=== PATIENT | male | born 1985 | race Hispanic/Latino ===

== ENCOUNTER 2024-01-11 23:29 | Emergency (ER) | payer SELFPAY ==
[2024-01-11 23:44] VITALS: BP 161/107
[2024-01-11 23:45] VITALS: BP 162/106
[2024-01-11] MEDS ORDERED: KETOROLAC TROMETHAMINE 15 MG/ML SDV IV ONE (23:55)
[2024-01-11] MEDS ORDERED: FAMOTIDINE 10MG/ML 2ML SDV IV ONE (23:55)
[2024-01-11] MEDS ORDERED: SODIUM CHLORIDE 0.9% 1,000 ML IV ONE (23:55)
[2024-01-11] MEDS ORDERED: DICYCLOMINE HCL 20 MG/2 ML VIAL IM ONE (23:55)
[2024-01-12] VITALS: BP 167/106
[2024-01-12 00:11] LABS: URINE BLOOD DIPSTICK Trace-intact (NEGATIVE); URINE CLARITY Clear; URINE GLUCOSE - DIPSTICK Negative (NEGATIVE); URINE KETONE Trace mg/dL (NEGATIVE); URINE LEUK ESTERASE Negative (Negative); URINE PROTEIN - DIPSTICK 30 mg/dL (NEG-TRACE); URINE SPECIFIC GRAVITY 1.025
[2024-01-12 00:16] VITALS: BP 171/83
[2024-01-12 00:19] LABS: ALBUMIN 4.4 g/dL (3.2-5.0); ALKALINE PHOSPHATASE 49 u/l (38-126); ANION GAP 12 (6-22 (CALC)); BUN 16 mg/dL (9-20); BUN/CREATININE RATIO 17 (12-20 (CALC)); CARBON DIOXIDE 26 mmol/l (22-30); CHLORIDE 102 mmol/l (95-108); CREATININE 0.9 mg/dL (0.7-1.3); GFR FOR AFR.AMER. > 60 ML/MIN (>=60 (CALC)); GFR OTHER RACES > 60 ML/MIN (>=60 (CALC)); LIPASE 254 u/l (23-300); POTASSIUM 3.7 mmol/l (3.5-5.1); SGOT/AST 296 u/l (17-59); SODIUM 136 mmol/l (137-146); TOTAL PROTEIN 8.6 g/dL (6.3-8.2)
[2024-01-12 00:21] LABS: URINE COLOR Yellow; URINE NITRITE - DIPSTICK Positive (Negative)
[2024-01-12 00:25] LABS: URINE BACTERIA FEW hpf; URINE SQUAMOUS EPITHELIAL CELL FEW EPI/hpf (0-FEW)
[2024-01-12 00:31] VITALS: BP 166/94
[2024-01-12 00:46] VITALS: BP 172/88
[2024-01-12 01:00] VITALS: BP 156/103
[2024-01-12] MEDS ORDERED: KETOROLAC TROMETHAMINE 30 MG/ML SDV IV ONE (02:00)
[2024-01-12 02:50] LABS: BASO% 0.5 % (0-3); EOS% 0.6 % (0-8); HEMATOCRIT 43.5 % (39.0-50.0); HEMOGLOBIN 14.3 g/dl (14.0-18.0); IMMATURE GRANULOCYTES 0.1 % (0.0-5.0); LYMPH% 26.3 % (15-41); MEAN CELL VOLUME 88.1 fL CALC (80.0-100.0); MEAN CORPUSCULAR HGB 28.9 pG CALC (26.0-32.0); MEAN CORPUSCULAR HGB CONC 32.9 g/dL CAL (32.0-36.0); MONO% 8.5 % (2-13); NEUT# 5.94 thou/uL (1.82-7.42); RED BLOOD COUNT 4.94 mill/uL (4.70-6.10); RED CELL DISTRI WIDTH 12.6 % (11.5-15.5)
[2024-01-12] MEDS ORDERED: BACTRIM DS1 TAB PO (03:09)
[2024-01-12] MEDS ORDERED: SULFAMETHOXAZOLE W/TRIMETHOPRI 1 COMBO TAB PO ONE (03:10)
[2024-01-12 04:30] VITALS: BP 156/103
== END 2024-01-12 07:43 | disposition home or self-care (01) | DRG 690 ==
LOC: ED 23:29
PROVIDERS: Emergency Medicine
DX: N39.0 Urinary tract infection, site not specified (principal); R74.01 Elevation of levels of liver transaminase levels; F10.90 Alcohol use, unspecified, uncomplicated